=== PATIENT | female | born 1970 | race Caucasian/White ===

== ENCOUNTER → 2016-09-18 | Outpatient (CLI) | payer BC, OTHER | LOC: FIMAGING 08:46 | PROVIDERS: ATTEND Obstetrics & Gynecology | DX: Z39.1 Encounter for care and examination of lactating mother (principal) ==

== ENCOUNTER → 2018-09-15 | Outpatient (CLI) | payer BC | LOC: BMCIMAGING 09:27 | PROVIDERS: ATTEND Internal Medicine | DX: M50.13 Cervical disc disorder with radiculopathy, cervicothoracic region (principal); M50.31 Other cervical disc degeneration, high cervical region; M47.23 Other spondylosis with radiculopathy, cervicothoracic region; M48.02 Spinal stenosis, cervical region ==

== ENCOUNTER → 2018-09-30 | Outpatient (CLI) | payer BC | LOC: BMCIMAGING 07:12 | PROVIDERS: ATTEND Internal Medicine | DX: K42.9 Umbilical hernia without obstruction or gangrene (principal) ==

== ENCOUNTER → 2018-10-29 | Outpatient (CLI) | payer BC | LOC: FIMAGING 07:48 ==